=== PATIENT | female | born 1985 | race Caucasian/White ===

== ENCOUNTER 2017-06-06 08:12 | Emergency (ER) | payer SELFPAY ==
[2017-06-06 08:20] VITALS: BP 116/76
[2017-06-06] MEDS ORDERED: CIPROFLOXACIN-HC OTIC SUSP 10 ML AD ONE (09:14)
--- NOTE | 2017-06-06 09:27 | ER Document Report ---
ED General - General Chief Complaint: Ear Pain Stated Complaint: EAR PAIN Time Seen by Provider: 06/06/17 09:02 Information source: Patient, Parent TRAVEL OUTSIDE OF THE [place] IN LAST 30 DAYS: No - HPI Patient complains to provider of: LEFT EAR PAIN/DECREASED HEARING Onset: Yesterday Onset/Duration: Gradual Quality of pain: Achy, Other - "FEELS SWOLLEN" Associated symptoms: None Exacerbated by: Other - movement of ear Relieved by: Denies, Other - attempted belladonna drops without effect Notes: 31-year-old female presents emergency department with her mom. She complains of right ear swelling and tenderness since yesterday. Patient does wear hearing aid in that ear.She has not worn it for the last day. 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 - Related Data Allergies/Adverse Reactions: No Known Allergies Allergy (Verified 06/06/17 08:13) Past Medical History - General Information source: Patient, Parent - Social History Smoking Status: Never Smoker Chew tobacco use (# tins/day): No Frequency of alcohol use: None Drug Abuse: None Lives with: Family Family History: Reviewed & Not Pertinent Patient has suicidal ideation: No Patient has homicidal ideation: No - Past Medical History Cardiac Medical History: Reports: None Pulmonary Medical History: Reports: None EENT Medical History: Reports: None Neurological Medical History: Reports: Other - Deaf left ear Endocrine Medical History: Reports: None Renal/ Medical History: Reports: None. Denies: Hx Peritoneal Dialysis Malignancy Medical History: Reports: None GI Medical History: Reports: None Musculoskeltal Medical History: Reports None Skin Medical History: Reports None Psychiatric Medical History: Reports: None Traumatic Medical History: Reports: None Infectious Medical History: Reports: Other - Meningitis age 1 Past Surgical History: Reports: None - Immunizations Hx Diphtheria, Pertussis, Tetanus Vaccination: Yes Review of Systems - Review of Systems Constitutional: No symptoms reported EENT: See HPI Cardiovascular: No symptoms reported Respiratory: No symptoms reported Gastrointestinal: No symptoms reported Genitourinary: No symptoms reported Female Genitourinary: No symptoms reported Musculoskeletal: No symptoms reported Skin: No symptoms reported Hematologic/Lymphatic: No symptoms reported Neurological/Psychological: No symptoms reported Physical Exam - Vital signs Vitals: Temp Pulse Resp BP Pulse Ox 98.7 F 100 18 116/76 95 06/06/17 08:18 06/06/17 08:18 06/06/17 08:18 06/06/17 08:18 06/06/17 08:18 Interpretation: Normal - Notes Notes: PHYSICAL EXAMINATION: GENERAL: Well-appearing, well-nourished and in no acute distress. HEAD: Atraumatic, normocephalic. EYES: Pupils equal round and reactive to light, extraocular movements intact, conjunctiva are normal. ENT: Nares patent, oropharynx clear without exudates. Moist mucous membranes. Left external ear and TM within normal limits.Right external pinna with mild cellulitis. No mastoid tenderness.External ear canal is mildly swollen and erythematous as well. TMs within normal limits NECK: Normal range of motion, supple without lymphadenopathy LUNGS: Breath sounds clear to auscultation bilaterally and equal. No wheezes rales or rhonchi. HEART: Regular rate and rhythm without murmurs ABDOMEN: Soft, nontender, nondistended abdomen. No guarding, no rebound. No masses appreciated. Female : deferred Musculoskeletal: Normal range of motion, no pitting or edema. No cyanosis. NEUROLOGICAL: Cranial nerves grossly intact. Normal speech, normal gait. Normal sensory, motor exams PSYCH: Normal mood, normal affect. SKIN: Warm, Dry, normal turgor, no rashes or lesions noted. Course - Re-evaluation Re-evalutation: 06/06/17 10:07 Patient did not have her hearing aid in throughout the emergency department visit.She did read my lips.All discharge orders were reviewed with her mother as well as the patient.I did start the patient on Keflex for an external ear cellulitis as well as drops for otitis Externa.Patient is to refrain from using her hearing aid for 2 days. She is to place 3 drops of Cipro otic in her ear twice daily. She does have an ear wick in there and has to come out 3 days as I told her and her mother.Patient was sent home with Cipro otic drops as well. - Vital Signs Vital signs: Temp Pulse Resp BP Pulse Ox 98.7 F 100 18 116/76 98 06/06/17 08:18 06/06/17 08:18 06/06/17 09:47 06/06/17 08:18 06/06/17 09:47 Discharge - Discharge Clinical Impression: External otitis of right ear, Cellulitis Condition: Stable Disposition: HOME, SELF-CARE Instructions: Using Ear Drops with a Wick (COUNTS INCLUDE 234 BEDS AT THE [facility]) Additional Instructions: Pull ear wick out in 3 days. If unable to do yourself to go to primary medical doctor or return here.-. Return to the emergency department if fever vomiting or worsening of concerns. Follow-up with your primary medical doctor in the next 2-3 days. If needed she can refer you to ENT. Please place 3 drops of Ciprodex in your right ear twice daily for a week. Prescriptions: Cephalexin Monohydrate [Keflex 500 mg Capsule] 500 mg PO Q6H 5 Days #20 capsule
== END 2017-06-06 09:47 | disposition home or self-care (01) ==
LOC: ER 08:12
DX: H60.11 Cellulitis of right external ear (principal)
CPT/HCPCS: 99282; J3490